=== PATIENT | male | born 1955 | race Caucasian/White ===

== ENCOUNTER → 2025-06-27 19:15 | Outpatient (REF) | payer OTHER, SELFPAY | LOC: MRI 19:15 | PROVIDERS: ATTENDING PHYSICIAN Anesthesiology; FAMILY PHYSICIAN Internal Medicine | DX: M54.16 Radiculopathy, lumbar region (principal); M48.062 Spinal stenosis, lumbar region with neurogenic claudication | CPT/HCPCS: 72148 ==